=== PATIENT | male | born 1960 | race Caucasian/White ===

== ENCOUNTER → 2020-05-12 15:14 | Outpatient (BNVA) | payer BC, SELFPAY | PROVIDERS: PCP Family Medicine; Visit Provider Internal Medicine Cardiovascular Disease | DX: I25.10 Atherosclerotic heart disease of native coronary artery without angina pectoris (principal); I10 Essential (primary) hypertension | CPT/HCPCS: 93005 ==

== ENCOUNTER → 2021-07-28 14:35 | Outpatient (BNVA) | payer BC, SELFPAY | PROVIDERS: PCP Family Medicine; Referring Provider Family Medicine; Visit Provider Internal Medicine Cardiovascular Disease | DX: I25.10 Atherosclerotic heart disease of native coronary artery without angina pectoris (principal); I10 Essential (primary) hypertension; E11.9 Type 2 diabetes mellitus without complications; Z79.899 Other long term (current) drug therapy | CPT/HCPCS: 93005 ==

== ENCOUNTER → 2022-07-29 14:21 | Outpatient (BNVA) | payer BC, SELFPAY | PROVIDERS: PCP Family Medicine; Referring Provider Family Medicine; Visit Provider Internal Medicine Cardiovascular Disease | DX: I25.10 Atherosclerotic heart disease of native coronary artery without angina pectoris (principal); I10 Essential (primary) hypertension | CPT/HCPCS: 93005 ==

== ENCOUNTER 2022-09-14 08:30 | Outpatient (REF) | payer BC, SELFPAY ==
[2022-09-14 12:51] LABS: Cholesterol 126 mg/dL; HDL Cholesterol 44 mg/dL; LDL Cholesterol Calculated 65 mg/dl; Triglycerides 86 mg/dL
== END 2022-09-14 08:31 | disposition home or self-care (01) ==
LOC: HO.WFDLDS 08:30
PROVIDERS: Visit Provider Internal Medicine Cardiovascular Disease
DX: I25.10 Atherosclerotic heart disease of native coronary artery without angina pectoris (principal); E78.5 Hyperlipidemia, unspecified
CPT/HCPCS: 36415; 80061

== ENCOUNTER 2023-08-09 14:20 | Outpatient (AMB) | payer BC, SELFPAY ==
[2023-08-09 14:26] VITALS: BP 118/78; PULSE 72; BMI 31.1
--- NOTE | 2023-08-09 14:26 | A.OFFVIS_ITS ---
Intake Vital Signs 08/09/23 14:26 Height 5 ft 7 in Weight 198 lb 6.656 oz BMI 31.1 BP 118/78 Blood Pressure Location Lt brachial Position Sitting Pulse 72 Intake Visit Reasons: 1 yr Intake Note: 1 year follow-up with ekg Reed Cleaner Required: No Allergies No Known Allergies Allergy (Verified 05/12/20 15:56) Medication List - Last Reconciled 08/09/23 by Aguila Eller MD allopurinol 300 mg PO DAILY aspirin (Adult Low Dose Aspirin) 162 mg (2 x 81 mg) PO DAILY atorvastatin 80 mg PO DAILY ezetimibe (Zetia) 10 mg PO DAILY 90 days lisinopril 10 mg PO DAILY metoprolol succinate ER 50 mg PO DAILY HPI HPI Comments History of Present Illness Details Enrike comes for follow-up. He has been doing very well. Continues to exercise and walk without any exertional symptoms chest pain shortness of breath. He takes all his medications without any side effects. Schedule for lipid panel in near future. Blood pressure is well optimized. Denies any heart failure symptoms. Denies any prolonged palpitation irregular heartbeat. [facility] Medical History CAD (coronary artery disease) HTN (hypertension) Diabetes mellitus Hyperlipidemia Surgical History Stented coronary artery Hx of cardiac cath Family History Father CVD (cardiovascular disease) Mother No problems noted. Review of Systems Const Denies chills, Denies fatigue, Denies fever(s), Denies frequent falls, Denies weakness, Denies weight gain and Denies weight loss ENT Denies dizziness Card Denies chest pain, Denies leg edema, Denies lightheadedness, Denies palpitations, Denies dyspnea, Denies dyspnea on exertion, Denies orthopnea and Denies other (loss of consciousness) Resp Denies cough, Denies dyspnea and Denies dyspnea on exertion GI Denies hematochezia and Denies change in stool character Musc Denies abnormal gait, Denies muscle weakness, Denies numbness, Denies radiating pain into limb and Denies tingling Neuro Denies abnormal gait, Denies dizziness, Denies frequent falls, Denies numbness, Denies tingling and Denies weakness Endo Denies fatigue and Denies palpitations Physical Exam Vital Signs: Last Vital Signs Pulse 72 08/09/23 14:26 BP 118/78 08/09/23 14:26 BMI result Body Mass Index 31.1 Const General: cooperative, no acute distress, alert and awake Nutritional Appearance: overweight Orientation/consciousness: patient oriented x3 Limitations: no limitations HEENT Head: Yes normocephalic and Yes atraumatic Neck Neck: Yes trachea midline, Yes supple and Yes no JVD Carotids: no bruits Resp Effort & Inspection: normal respiratory effort Auscultation: clear to auscultation bilaterally Cardio Jugular venous distension: no JVD Palpation: normal PMI Rate: regular rate Rhythm: regular rhythm Heart sounds: S1 normal heart sound present and S2 normal heart sound present Skin General skin exam: no rashes or lesions noted Neuro General: patient oriented x3 and no focal motor deficits Extrem General: Yes no clubbing, cyanosis or edema Psych Appearance: grossly normal Affect: Anxious affect present Office Procedures EKG Details: EKG shows normal sinus rhythm with septal QS pattern [id number], Complete Assessment & Plan Assessment & Plan (1) CAD (coronary artery disease): Code(s): I25.10 - Atherosclerotic heart disease of [place] coronary artery without angina pectoris Plan: CAD with drug-eluting stent to LAD for acute coronary syndrome. Since then he has had no recurrent symptoms. Doing well on medical therapy. Given 15 years, will proceed with exercise myocardial perfusion imaging to evaluate for myocardial ischemia and stent patency. This was discussed with him. He understands agrees. Continue aggressive vascular risk factor modification. Co ntinue aspirin therapy for life. Continue aggressive management of blood pressure which is currently well optimized. See below. Diabetes management under you with goal hemoglobin A1c less than 7%. Continue high-intensity statin therapy with ezetimibe therapy. Goal LDL closer to 60 mg/dL. Please forward the copy of his lipid panel to us. (2) HTN (hypertension): Code(s): I10 - Essential (primary) hypertension Plan: Hypertension which is currently well optimized advised to monitor blood pressure at home maintain a log. Goal blood pressure less than 130/84. Low-salt diet was advised. Advised to maintain heart healthy lifestyle. Will follow up in the clinic in 1 year's time, sooner p.r.n.. Thank you for allowing me to partake in his care Orders: Orders CA stress test Today I25.10 - Atherosclerotic heart disease of [place] coronary artery without angina pectoris NM cardiolite stress test 2 Weeks I25.10 - Atherosclerotic heart disease of [place] coronary artery without angina pectoris, R07.9 - Chest pain, unspecified Coding Level of Care Code Est Pt Level 4 (13783) Diagnoses CAD (coronary artery disease) I25.10 HTN (hypertension) I10 CPT Codes EKG - CPT: 05845-[id number], Complete ([id number])
== END 2023-08-09 14:47 | disposition home or self-care (01) ==
PROVIDERS: Visit Provider Internal Medicine Cardiovascular Disease
DX: I25.10 Atherosclerotic heart disease of native coronary artery without angina pectoris (principal); I10 Essential (primary) hypertension
CPT/HCPCS: 93010; 99214

== ENCOUNTER → 2023-08-09 14:20 | Outpatient (BNVA) | payer BC, SELFPAY | PROVIDERS: Visit Provider Internal Medicine Cardiovascular Disease | DX: I25.10 Atherosclerotic heart disease of native coronary artery without angina pectoris (principal); I10 Essential (primary) hypertension; Z79.82 Long term (current) use of aspirin; Z95.5 Presence of coronary angioplasty implant and graft | CPT/HCPCS: 93005 ==

== ENCOUNTER → 2023-09-06 08:03 | Outpatient (REF) | payer BC, SELFPAY ==
--- NOTE | ~2023-09-06 | NM_ITS ---
EXERCISE MYOCARDIAL PERFUSION STUDY INDICATION: Coronary artery disease, assess for ischemia TECHNIQUE: The patient was brought in for an exercise perfusion study on 09/06/2023. Patient performed exercise as per Yemi protocol and was injected 30 mCi of sestamibi once target heart rate was achieved. Images were obtained using the SPECT gamma camera interlaced with the gating device. Images were obtained in supine position. Resting perfusion study was performed on 09/07/2023. Patient was administered 30 mCi of sestamibi intravenously at rest. Images were then obtained in supine position. Images were processed with the software and compared side to side in short axis, horizontal long axis and vertical long axis views. Total DLP 115mGy-cm. FINDINGS: Raw images were reviewed The stress perfusion study showed diminished tracer uptake in mid to distal anterior wall. There is no significant change with CT attenuation correction. The gated study shows diminished LV systolic function with calculated LVEF of 47%. LV cavity is normal in size. The gated study shows mid to distal anterior hypokinesis. Resting study shows diminished tracer uptake in the mid to distal anterior wall, similar to the stress acquisition. No major change with CT attenuation correction. Gating at rest reveals reduced contractility in the mid to distal anterior wall with gated ejection fraction at 43%. The findings are consistent with fixed perfusion defect in the mid to distal anterior wall including adjacent apex. [place] cardiolite stress test IMPRESSION: 1. Myocardial perfusion imaging study shows prior infarct in the mid to distal anterior wall, adjacent apex. 2. Gated LVEF is 47% during stress and 43% during rest. 3. Transient ischemic dilatation not present. EKG component of the test reported separately.
--- NOTE | 2023-09-06 08:05 | CA_ITS ---
Acquisition Time: 2023-09-06 08:20:48 Total Exercise Time: 00:07:00 Test Indications: CAD Medications: SEE H Protocol: ARCHIE Max HR: 141 BPM 90% of Pred: 156 BPM Max BP: 164/068 mmHG Max Work Load: 8.5 METS Exercise stress test with exercise 7 min achieving 90% MPHR, without anginal symptoms, with isolated PVCs and ventricular bigeminy (asymptomatic), with normotensive response to exercise , with slight downslop in leads 2, V4-V6 not meeting crtieria for ischemia. Nuclear images pending. Test reviewed with Dr. Eller Referred By: Aguila Eller Overread By: Hailee Burns
== END ==
LOC: HO.CARD 08:03
PROVIDERS: PCP Family Medicine; Visit Provider Internal Medicine Cardiovascular Disease
DX: R07.9 Chest pain, unspecified (principal); I25.10 Atherosclerotic heart disease of native coronary artery without angina pectoris
CPT/HCPCS: 78452; 93017; A9500

== ENCOUNTER → 2023-09-06 08:05 | Outpatient (BNV) | payer BC, SELFPAY | PROVIDERS: PCP Family Medicine; Visit Provider Nurse Practitioner | DX: I49.3 Ventricular premature depolarization (principal) | CPT/HCPCS: 78452; 93016; 93018 ==

== ENCOUNTER → 2023-10-04 09:56 | Outpatient (REF) | payer BC, SELFPAY ==
--- NOTE | 2023-10-04 09:58 | CA_ITS ---
Transthoracic Echocardiogram Patient (Last, First, Middle): Enrike Costa L Gender: Male Date of : 1960 Age: 63 Procedure Date: 10/04/2023 Procedure Type: Transthoracic Echocardiogram Location: OP Height: 167.64 cm Weight: 84.82 kg BSA: 1.94 m2 Heart Rate: bpm BP: 130 / 80 mmHg Communications Maintainer: TO Referring MD: Aguila Eller MD Symptoms: I25.10 - Atherosclerotic heart disease of [place] coronary artery without... Study Quality: Fair/Contrast ECG Rhythm: Sinus Conclusions: - The left ventricular systolic function is low normal. The calculated ejection fraction is 52% by biplane method. - The apical inferior, mid inferior, apical septum, and mid anteroseptal segments are hypokinetic. - No obvious valvular pathology seen on this study. Findings Procedure Information Contrast agent, definity, is being given per protocol without apparent complications. Left Ventricle Normal left ventricular cavity size. The left ventricular systolic function is low normal. The calculated ejection fraction is 52% by biplane method. There is evidence of regional wall motion abnormalities. Evidence suggests grade I (mild) diastolic dysfunction. There is mild septal asymmetric hypertrophy. Wall Motion Rest Echo Findings The apical inferior, mid inferior, apical septum, and mid anteroseptal segments are hypokinetic. Right Ventricle Normal right ventricular cavity size and systolic function. Atria The left atrium is mildly dilated. The right atrium is normal in size. Aortic Valve There is a normal trileaflet aortic valve. There is no aortic valve stenosis. There is no aortic valve regurgitation. Mitral Valve The mitral valve appears normal. There is trace mitral valve regurgitation. There is no mitral valve stenosis. Pulmonic Valve The pulmonic valve is likely normal. Tricuspid Valve There is no tricuspid valve regurgitation. Tricuspid regurgitation envelope is inadequate for calculation of right ventricular systolic pressure. Great Vessels The asc aorta is normal in size. Venous The inferior vena cava is normal in size and collapses greater than 50% with inspiration. Pericardium/Pleural There is no evidence of pericardial effusion. Prior Study Comparison No significant change compared to prior study dated: 05/23/2018. (images reviewed) Recommendations, Care & Conclusions No obvious valvular pathology seen on this study. Measurements 2D Linear Measurements IVSd: 1.10 0.6-0.9/0.6-1.0 cm LVIDd: 5.04 3.9-5.3/4.2-5.9 cm LVIDd Index: 2.60 2.4-3.2/2.2-3.1 cm/m2 LVIDs: 3.26 2.0-3.6 cm LVPWd: 0.88 0.7-1.1 cm LA Diam: 4.30 2.7-3.8/3.0-4.0 cm LAIDs Index: 2.22 1.5-2.3 cm/m2 LV Mass: 226.18 67-162/88-224 g LV Mass Index: 116.59 43-95/49-115 g/m2 LVOT Diam: 2.30 3.0+(-)1.3 cm 2D Systolic Function EF 4C: 53.00 >55% EF 2C: 50.80 >55% EF BiP: 52.10 >55% Mitral Valve MV Pk E: 0.65 MV PK A: 0.69 MV Decel Time: 218.00 E/A: 0.90 E'Lateral: 6.64 E'Medial: 4.90 E/E' Med: 13.20 E/E' Lat: 9.70 PHT: 64.00 MVA PHT: 3.44 Decel [place]: 2.96 Aortic Valve AoV Pk Ishmael: 1.50 AoV Mn Ishmael: 0.91 AoV VTI: 0.28 AoV Pk Grad: 9.00 Aov Mn Grad: 4.00 MALENA Cont.VTI: 3.74 LVOT LVOT Pk Ishmael: 1.19 LVOT Mn Ishmael: 0.80 LVOT VTI: 0.25 LVOT Pk Grad: 6.00 LVOT Mn Grad: 3.00 LVOT Diam: 2.30 LVOT Area: 4.15 Diastolic Function MV Pk E: 0.65 MV Pk A: 0.69 E/A: 0.90 E'Medial: 4.90 E/E' Med: 13.20 E' Laterial: 6.64 E/E' Lat: 9.70 Right Ventricle TAPSE (mm): 27.40 TVS' Ishmael: 14.40 Tricuspid Valve RA Press: 3.00 Great Vessels Aorta Sinus of Valsalva: 3.87 2.0-3.5 cm Ao Asc: 3.60 2.1-3.4 cm Updated in Other Vendor System with Status of Final Qamar Spence MD electronically signed on 10/05/2023 1:09:50 PM with status of Final
== END ==
LOC: HO.CARD 09:56
PROVIDERS: PCP Family Medicine; Visit Provider Internal Medicine Cardiovascular Disease
DX: I25.10 Atherosclerotic heart disease of native coronary artery without angina pectoris (principal); I10 Essential (primary) hypertension
CPT/HCPCS: 93306; Q9957

== ENCOUNTER → 2023-10-04 09:58 | Outpatient (BNV) | payer BC, SELFPAY | PROVIDERS: PCP Family Medicine; Visit Provider Internal Medicine | DX: I25.10 Atherosclerotic heart disease of native coronary artery without angina pectoris (principal); I51.89 Other ill-defined heart diseases | CPT/HCPCS: 93306 ==

== ENCOUNTER 2024-08-14 14:15 | Outpatient (AMB) | payer MEDICARE, BC, SELFPAY ==
--- NOTE | 2024-08-14 14:31 | MHC.OFFVIS ---
Vital Signs 08/14/24 14:33 Height 5 ft 7 in Weight 194 lb 14.218 oz BMI 30.5 BP 120/62 Blood Pressure Location Lt brachial Position Sitting Pulse 60 Pulse Source Monitor Intake Visit Reasons: 1 yr f/up Intake Note: 1 yr f/up Tax Manager Cpa Required: No Accompanied by: Self / Same As Patient Allergies No Known Allergies Allergy (Verified 05/12/20 15:56) Medication List - Last Reconciled 08/14/24 by Aguila Eller MD allopurinol 300 mg PO DAILY aspirin (Adult Low Dose Aspirin) 162 mg (2 x 81 mg) PO DAILY atorvastatin 80 mg PO DAILY ezetimibe 10 mg PO DAILY lisinopril 20 mg PO DAILY metoprolol succinate ER 50 mg PO DAILY HPI Comments Details: Enrike comes for follow-up. He has been doing very well from cardiac perspective. Denies any new exertional chest pain or shortness of breath. His hemoglobin A1c remains on 6.5%. Last LDL is 60 mg/dL. Taking all his medications. Denies any heart failure symptoms. No prolonged palpitation irregular heartbeat. No lightheadedness, syncope. His lisinopril was recently increased to 20 mg per daily and since then he said his blood pressures been well controlled. [facility] Medical History CAD (coronary artery disease) HTN (hypertension) Diabetes mellitus Hyperlipidemia Surgical History Stented coronary artery Hx of cardiac cath Family History Father CVD (cardiovascular disease) Mother No problems noted. Review of Systems Const Denies chills, Denies fatigue, Denies fever(s), Denies frequent falls, Denies weakness, Denies weight gain and Denies weight loss ENT Denies dizziness Card Denies chest pain, Denies leg edema, Denies lightheadedness, Denies palpitations, Denies dyspnea and Denies dyspnea on exertion Resp Denies cough, Denies dyspnea and Denies dyspnea on exertion GI Denies hematochezia Musc Denies abnormal gait, Denies muscle weakness, Denies numbness, Denies radiating pain into limb and Denies tingling Neuro Denies abnormal gait, Denies dizziness, Denies frequent falls, Denies numbness, Denies tingling and Denies weakness Endo Denies fatigue and Denies palpitations Physical Exam Vital Signs: Last Vital Signs Pulse 60 08/14/24 14:33 BP 120/62 08/14/24 14:33 BMI result Body Mass Index 30.5 Const General: cooperative, no acute distress, alert and awake Nutritional Appearance: overweight Orientation/consciousness: patient oriented x3 Limitations: no limitations HEENT Head: Yes normocephalic and Yes atraumatic Neck Neck: Yes trachea midline, Yes supple and Yes no JVD Carotids: no bruits Resp Effort & Inspection: normal respiratory effort Auscultation: clear to auscultation bilaterally Cardio Jugular venous distension: no JVD Palpation: normal PMI Rate: regular rate Rhythm: regular rhythm Heart sounds: S1 normal heart sound present and S2 normal heart sound present Skin General skin exam: no rashes or lesions noted Neuro General: patient oriented x3 and no focal motor deficits Extrem General: Yes no clubbing, cyanosis or edema Psych Appearance: grossly normal Affect: Anxious affect present Office Procedures EKG Details: EKG shows normal sinus rhythm poor R-wave progression consistent with anteroseptal ID with nonspecific ST T wave changes, unchanged from before [id number], Complete Assessment & Plan Assessment & Plan (1) CAD (coronary artery disease): Code(s): I25.10 - Atherosclerotic heart disease of [place] coronary artery without angina pectoris Category: Medical Plan: Stable coronary artery disease with remote stenting to the LAD for acute coronary syndrome with residual infarcts segment in mid to distal LAD segment noted on myocardial perfusion imaging as well as echocardiogram. Low preserved LV ejection fraction. Continue aggressive medical therapy. Continue low-dose aspirin therapy. Continue high-intensity statin therapy with ezetimibe therapy with well optimized LDL. Continue neurohormonal modulation with metoprolol lisinopril therapy and aggressive blood pressure control. Encouraged to maintain activity level as tolerated. Advised to call me with any new exertional symptoms. (2) HTN (hypertension): Code(s): I10 - Essential (primary) hypertension Category: Medical Plan: Hypertension which is currently well optimized with increase medications of lisinopril. Advised to monitor blood pressure at home maintain a log. Goal blood pressure less than 130/84. Low-salt diet was discussed. Maintain activity level as tolerated. Importance of compliance with medication was discussed. Understands and agrees. Follow up in the clinic in 1 year's time, sooner p.r.n.. Thank you for allowing me to partake in his care Coding Level of Care Code Est Pt Level 4 (86426) Complex EM visit Add On G2211 Diagnoses CAD (coronary artery disease) I25.10 HTN (hypertension) I10 CPT Codes EKG - CPT: 32693-[id number], Complete ([id number])
[2024-08-14 14:33] VITALS: BP 120/62; PULSE 60; BMI 30.5
--- OUTSIDE RECORDS SUMMARY | 2024-08-14 17:05 | XMS_ITS | Data Portability ---
Author Organization [facility], , [facility] Address [address] [place] [address] Care Team Providers Care Mud Car Worker Name Role Phone DIANE CONNELL Primary Care Provide r FRANCES LIM Director Facilities Maintenance KIM DEGROOT Wildlife Officer [facility] Spiral Gear Generator BOYD FELIPE Winch Operator [phone] Assessment No assessment recorded. Plan of Treatment Reminders Order Date Submit Date Provider Last Modified By Organization Details Last Modified Time Details Appointments LAB Follow-Up 2024 08:05A M [facility] Lab Not available Not available Not available Medical Managemen t 15 2024 09:15A M Diane Reardon MD Not available Not available Not available Lab lipid panel, serum 2023 024 [facility], [address] [place] [address], [id number], 02/29/2024 14:01:18 BMP, serum or plasma 2023 024 [facility], [address] [place] [address], [id number], 02/29/2024 14:01:17 uric acid, serum or plasma 2022 023 [facility], [address] [place] [address], [id number], 02/21/2023 14:26:32 lipid panel, serum 2022 023 [facility], [address] [place] [address], [id number], 02/21/2023 14:26:31 HbA1c (hemoglob in A1c), blood 2022 023 [facility], [address] [place] [address], [id number], 02/21/2023 11:10:23 BMP, serum or plasma 2022 023 [facility], [address] [place], [address], 02/21/2023 14:26:30 Referral orthopedi c surgeon referral - L knee pain, worsening , 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 Surgeries None recorded. Imaging None recorded. Medication Orders None recorded. Patient TargetsNo targets recorded. Patient Instructions Encounter Date Encounter Id Patient Instructions Last Modified By Organization Details Last Modified Time 02/25/2022 [id number] high cholesterol lifestyle changes melina Not available 02/25/2022 09:14:02 Well Visit 50 to 65: Care Instructions melina Not available 02/25/2022 09:14:02 Prostate Cancer Screening using PSA was discussed. The U.S. Preventive Services Task Force advises not to make a PSA test a part of the standard exam for men ages 55-69. Instead they recommend the uncertainties about the test be discussed and ordered only if a patient still wants it. Over their lifetimes as many as 50% or more of men will develop prostate cancer but only 2% of men will of prostate cancer. For men who chose to be screened for prostate cancer if 1000 men are screened with a psa test over a 15 year period there might be 1-2 deaths prevented however 235 men will have a biopsy with risk of infection, bleeding and Pain, 100 men will have their prostate removed by surgery or radiation treatments and 60-70 of those will suffer incontinence or impotence. There is also the risk of anesthesia or radiation complications. For men over 70 prostate cancer screening offered no benefit and risked pain, worry, expense and possibly shorter life expectancy. After a discussion of treatment and medication options, which included consideration of the best practices in medicine, a medical plan was provided. The patient's opinions and concerns were included in this treatment plan and goal. * Maintain 1200 mg of calcium from food sources daily, * Take vitamin D 7089-1841 units daily to help absorption of calcium into your bones * Use sunblock consistently * Review the website: [employer] to get more information on the Mediterranean diet - a heart healthy eating plan * Immunizations up to date; COVID vaccines; booster for bivalent declined for now; will get it the pharmacy. * The current guidelines from the [place] [employer] is moderate aerobic physical activity about 30 minutes for 5 days of the week. Walking at a moderately fast pace, as tolerated. Try to build muscle mass. This will help maintain bone strength and support your joints. * Colonoscopy is due 2022. Normal in year * Pt has a hx of precancerous polypsand needs repeat col onoscopy every 5 years. Colonoscopy due 2018. * Health care proxy discussed and no changes. * Wellness Visit in 1 year * See your dentist at least twice a year. * Vision checks every year is recommended because you have diabetes. * Discussed labs - Nov 2021 HTN - at goal of less than 130/80 per AHA guidelines. Please continue meds and salt reduction. f/u in 6 mos with labs prior. DM2 - discussed labs, A1c at goal of less than 7%; continue lifestyle and low carb diet. Lipids - discussed labs, your LDL (bad type of cholesterol) is at goal. Continue your cholesterol lowering medications. Review the website: [employer] for more information on the Mediterranean diet. Continue to try a plant-based diet, try to do moderate physical activity for 30 minutes 5 days a week. * uric acid in range, continue allopurinol melina Not available 02/25/2022 09:14:45 08/30/2022 [id number] high cholesterol lifestyle changes melina Not available 08/30/2022 09:58:25 reducing risk of another heart attack with medicine: care instructions melina Not available 08/30/2022 09:58:25 reducing risk of another heart attack with medicine: care instructions melina Not available 08/30/2022 09:58:25 After a discussion of treatment and medication options, which included consideration of the best practices in medicine, a medical plan was provided. The patient's opinions and concerns were included in this treatment plan and goal. HTN - at goal of less than 130/80 per AHA guidelines. Please continue meds and salt reduction. DM2 - discussed labs, A1c at goal of less than 7%; continue meds Lipids - discussed labs, your LDL (bad type of cholesterol) is at goal. Continue your cholesterol lowering medications. Review the website: [employer] for more information on the Mediterranean diet. Modify your diet and sodium/salt requirement is less than 1500 mg per day. Continue to try a plant-based diet, try to do moderate physical activity for 30 minutes 5 days a week. no gout attacks continue allopurinol we will send lab results to Dr Lim, CAD stable, asymptomatic. melina Not available 08/30/2022 20:38:18 03/07/2023 [id number] Well Visit 50 to 65: Care Instructions melina Not available 03/09/2023 05:06:41 Prostate Cancer Screening was discussed. The U.S. Preventive Services Task Force advises not to make a PSA test a part of the standard exam for men ages 55-69. Instead they recommend the uncertainties about the test be discussed and ordered only if a patient still wants it. Over their lifetimes as many as 50% or more of men will develop prostate cancer but only 2% of men will of prostate cancer. For men who chose to be screened for prostate cancer if 1000 men are screened with a psa test over a 15 year period there might be 1-2 deaths prevented however 235 men will have a biopsy with risk of infection, bleeding and Pain, 100 men will have their prostate removed by surgery or radiation treatments and 60-70 of those will suffer incontinence or impotence. There is also the risk of anesthesia or radiation complications. For men over 70 prostate cancer screening offered no benefit and risked pain, worry, expense and possibly shorter life expectancy. After a discussion of treatment and medication options, which included consideration of the best practices in medicine, a medical plan was provided. The patient's opinions and concerns were included in this treatment plan and goal. * Maintain 1200 mg of calcium from food sources daily, * Take vitamin D 0178-1205 units daily to help absorption of calcium into your bones * Use sunblock consistently * Review the website: [employer] to get more information on the Mediterranean diet - a heart healthy eating plan * Immunizations up to date; COVID vaccine booster recommended. * The current guidelines from the [place] [employer] is moderate aerobic physical activity about 30 minutes for 5 days of the week. Walking at a moderately fast pace, as tolerated. Try to build muscle mass. This will help maintain bone strength and support your joints. * Colonoscopy is due 2022 - precancerous polyps noted in 2107 - scheduled May 06, 2023. * Health care proxy discussed and no changes. * Wellness Visit in 1 year * See your dentist at least twice a year. * Vision checks every year is recommended because you have diabetes. * Discussed labs - we will send to Dr Lim as requested by pt * CAD - stable, cardio once a year * gout - no flare ups, stable on allopurinol HTN - at goal of less than 130/80 per AHA guidelines. Please continue meds and salt reduction. Will send BP readings via portal, will take BP 2 to 3 hours after taking medications in the AM DM2 - discussed labs, A1c at goal of less than 7%; continue diet modification See your eye doctor every year to monitor for diabetic retinopathy. Lipids - discussed labs, your LDL (bad type of cholesterol) is at goal. Continue your cholesterol lowering medications. Review the website: [employer] for more information on the Mediterranean diet. Modify your diet and sodium/salt requirement is less than 1500 mg per day. Continue to try a plant-based diet, try to do moderate physical activity for 30 minutes 5 days a week. melina Not available 03/09/2023 05:09:56 09/02/2023 [id number] have a great time in [facility]! melina Not available 09/02/2023 09:53:47 Reason for Referral Orthopedic Surgeon Referral for Pain of left knee joint L knee pain, worsening , retired mail machine operator Referring Physician: Diane Reardon, Family Medicine, Encounter Date: 03/06/2024 Results Created Date Observation Date Name Description Value Unit Range Abnormal Flag Note LastModifiedBy Organization Detail LastModifiedTime 08/24/1908/23/2022 HGB A1C hemoglobin A1C 6.5 % 4.8-6. 0 high Goal: <7% in Patie nts with Diabe birgit An A1c betwe en 5.7-6 .4% is ident ified as pre-d iabet es and sugge sts risk for progr essio n to diabe birgit Two a1c value s of 6.5% or highe r is consi stent with a diagn osis of diabe birgit but may need furth er confi rmati on Not Available [address], [address], 08/23/2022 10:45:15 08/24/1908/23/2022 HGB A1C estimated average glucose 139.9 mg/dL Not Available [address], [address], 08/23/2022 10:45:15 08/24/19 23 08/23/2022 BASIC METAB OLIC PANEL glucose 117 mg/dL 70-100 high Not Available [address], [address], 08/23/2022 15:02:29 08/24/1908/23/2022 BASIC METAB OLIC PANEL BUN 13 mg/dL 7-18 Not Available [address], [address], 08/23/2022 15:02:29 08/24/1908/23/2022 BASIC METAB OLIC PANEL creatinine 0.7 mg/dL 0.8-1. 3 low Not Available [address], [address], 08/23/2022 15:02:29 08/24/19 23 08/23/2022 BASIC METAB OLIC PANEL B/C 18.6 ratio Not Available [address], [address], 08/23/2022 15:02:29 08/24/19 23 08/23/2022 BASIC METAB OLIC PANEL GFR >=60ML /MIN mL/mi n normal >=60m L/min - Nyla l or midly reduc ed <60mL /min- Decre ased kidne y funct ion <15mL /min - Kidne y failu re [facility] calcu lates estim ated Glome rular Filtr ation Rate (eGFR ) using the Chron ic Kidne y Disea se Epide miolo gy Colla borat ion (CKD- EPI) Equat ion (Ro r et. al 2020) as recom omid d by the Natio nal Kidne y Found ation . eGFR is based on age, serum creat inine , and sex. CKD-E PI does not calcu late eGFR by race, does not apply to child diya (age <18 years ), and shoul d not be used in pregn brandi. Not Available [address], [address], 08/23/2022 15:02:29 08/24/1908/23/2022 BASIC METAB OLIC PANEL sodium 142 mmol/ L 136-14 5 Not Available [address], [address], 08/23/2022 15:02:29 08/24/1908/23/2022 BASIC METAB OLIC PANEL potassium 4.5 mmol/ L 3.5-5. 1 Not Available [address], [address], 08/23/2022 15:02:29 08/24/19 23 08/23/2022 BASIC METAB OLIC PANEL chloride 104 mmol/ L 96-107 Not Available [address], [address], 08/23/2022 15:02:29 08/24/1908/23/2022 BASIC METAB OLIC PANEL anion gap 9.1 5.0-15 .0 Not Available [address], [address], 08/23/2022 15:02:29 08/24/1908/23/2022 BASIC METAB OLIC PANEL CO2 29 mmol/ L 21-32 Not Available [address], [address], 08/23/2022 15:02:29 08/24/19 23 08/23/2022 BASIC METAB OLIC PANEL calcium 9.2 mg/dL 8.5-10 .3 Not Available [address], [address], 08/23/2022 15:02:29 02/22/20 23 02/21/2023 HGB A1C hemoglobin A1C 6.5 % 4.8-6. 0 high Goal: <7% in Patie nts with Diabe birgit An A1c betwe en 5.7-6 .4% is ident ified as pre-d iabet es and sugge sts risk for progr essio n to diabe birgit Two a1c value s of 6.5% or highe r is consi stent with a diagn osis of diabe birgit but may need furth er confi rmati on Not Available [address], [address], 02/21/2023 11:10:23 02/22/20 23 02/21/2023 HGB A1C estimated average glucose 139.9 mg/dL Not Available [address], [address], 02/21/2023 11:10:23 02/22/20 23 02/21/2023 BASIC METAB OLIC PANEL glucose 114 mg/dL 70-100 high Not Available [address], [address], 02/21/2023 14:26:30 02/22/20 23 02/21/2023 BASIC METAB OLIC PANEL BUN 15 mg/dL 7-18 Not Available [address], [address], 02/21/2023 14:26:30 02/22/20 23 02/21/2023 BASIC METAB OLIC PANEL creatinine 0.7 mg/dL 0.8-1. 3 low Not Available [address], [address], 02/21/2023 14:26:30 02/22/20 23 02/21/2023 BASIC METAB OLIC PANEL B/C 21.4 ratio Not Available [address], [address], 02/21/2023 14:26:30 02/22/20 23 02/21/2023 BASIC METAB OLIC PANEL GFR >=60ML /MIN mL/mi n normal >=60m L/min - Nyla l or midly reduc ed <60mL /min- Decre ased kidne y funct ion <15mL /min - Kidne y failu re [facility] calcu lates estim ated Glome rular Filtr ation Rate (eGFR ) using the Chron ic Kidne y Disea se Epide miolo gy Colla borat ion (CKD- EPI) Equat ion (Ro duncan et. al 2020) as recom omid d by the Natio nal Kidne y Found ation . eGFR is based on age, serum creat inine , and sex. CKD-E PI does not calcu late eGFR by race, does not apply to child diya (age <18 years ), and shoul d not be used in pregn brandi. Not Available [address], [address], 02/21/2023 14:26:30 02/22/20 23 02/21/2023 BASIC METAB OLIC PANEL sodium 143 mmol/ L 136-14 5 Not Available [address], [address], 02/21/2023 14:26:30 02/22/20 23 02/21/2023 BASIC METAB OLIC PANEL potassium 4.3 mmol/ L 3.5-5. 1 Not Available [address], [address], 02/21/2023 14:26:30 02/22/20 23 02/21/2023 BASIC METAB OLIC PANEL chloride 105 mmol/ L 96-107 Not Available [address], [address], 02/21/2023 14:26:30 02/22/20 23 02/21/2023 BASIC METAB OLIC PANEL anion gap 13.0 5.0-15 .0 Not Available [address], [address], 02/21/2023 14:26:30 02/22/20 23 02/21/2023 BASIC METAB OLIC PANEL CO2 25 mmol/ L 21-32 Not Available [address], [address], 02/21/2023 14:26:30 02/22/20 23 02/21/2023 BASIC METAB OLIC PANEL calcium 8.8 mg/dL 8.5-10 .3 Not Available [address], [address], 02/21/2023 14:26:30 02/22/20 23 02/21/2023 LIPID PANEL cholesterol 135 mg/dL <200 mg/dl Mahendra able 200-2 39 mg/dl Borde rline High >240 mg/dl High Not Available [address], [address], 02/21/2023 14:26:31 02/22/20 23 02/21/2023 LIPID PANEL triglyceride s 55 mg/dL <150 mg/dL Nyla l 150-1 99 mg/dL Borde rline High 200-4 99 mg/dL High >500 mg/dL Very High Not Available [address], [address], 02/21/2023 14:26:31 02/22/20 23 02/21/2023 LIPID PANEL direct HDL 63 mg/dL <40 mg/dl - Major Risk for CHD >60 mg/dl - Negat david Risk for CHD Not Available [address], [address], 02/21/2023 14:26:31 10/3002/21/2023 URIC ACID uric acid 4.5 mg/dL 3.5-7. 2 Not Available [address], [address], 02/21/2023 14:26:32 02/22/2002/21/2023 LDL - CALCU LATED LDL - calculated 61.0 RISK CATEG ORY LDL GOAL _ CHD or CHD Risk Equiv alent s <100 mg/dl (10-y ear risk >20%) 2+ Risk Facto rs <130 mg/dl (10-y ear risk <= 20%) 0-1 Risk Facto r? <160 mg/dl ? Almos t all peopl e with 0-1 risk facto r have a 10 year risk <10%, thus 10 year risk asses ment in peopl e with 0-1 risk facto r is not gene kasia. Not Available [address], [address], 02/21/2023 14:26:33 02/22/2002/21/2023 MICRO ALBUM IN/CR EATIN INE RATIO PANEL , URINE microalbumin 19.2 mg/L 1.3-20 .0 Not Available [address], [address], 02/21/2023 14:46:01 02/22/20 23 02/21/2023 MICRO ALBUM IN/CR EATIN INE RATIO PANEL , URINE creatinine urine 114.4 mg/dL 30.0-1 25.0 Not Available [address], [address], 02/21/2023 14:46:01 02/22/20 23 02/21/2023 MICRO ALBUM IN/CR EATIN INE RATIO PANEL , URINE microalb/cre at ratio 16.8 mg/g_ creat 0.0-29 .0 Not Available [address] [place], [address], 02/21/2023 14:46:01 08/26/19 24 08/26/2023 BASIC METAB OLIC PANEL glucose 113 mg/dL 70-100 high Not Available [address], [address], 08/26/2023 10:38:37 08/26/19 24 08/26/2023 BASIC METAB OLIC PANEL BUN 10 mg/dL 7-18 Not Available [address], [address], 08/26/2023 10:38:37 08/26/1908/26/2023 BASIC METAB OLIC PANEL creatinine 0.7 mg/dL 0.8-1. 3 low Not Available [address], [address], 08/26/2023 10:38:37 08/26/19 24 08/26/2023 BASIC METAB OLIC PANEL B/C 14.3 ratio Not Available [address], [address], 08/26/2023 10:38:37 08/26/1908/26/2023 BASIC METAB OLIC PANEL GFR >=60ML /MIN mL/mi n normal >=60m L/min - Nyla l or midly reduc ed <60mL /min- Decre ased kidne y funct ion <15mL /min - Kidne y failu re [facility] calcu lates estim ated Glome rular Filtr ation Rate (eGFR ) using the Chron ic Kidne y Disea se Epide miolo gy Colla borat ion (CKD- EPI) Equat ion (Ro r et. al 2020) as recom omid d by the Natio nal Kidne y Found ation . eGFR is based on age, serum creat inine , and sex. CKD-E PI does not calcu late eGFR by race, does not apply to child diya (age <18 years ), and shoul d not be used in pregn brandi. Not Available [address], [address], 08/26/2023 10:38:37 08/26/19 24 08/26/2023 BASIC METAB OLIC PANEL sodium 142 mmol/ L 136-14 5 Not Available [address], [address], 08/26/2023 10:38:37 08/26/19 24 08/26/2023 BASIC METAB OLIC PANEL potassium 4.4 mmol/ L 3.5-5. 1 Not Available [address], [address], 08/26/2023 10:38:37 08/26/19 24 08/26/2023 BASIC METAB OLIC PANEL chloride 104 mmol/ L 96-107 Not Available [address], [address], 08/26/2023 10:38:37 08/26/19 24 08/26/2023 BASIC METAB OLIC PANEL anion gap 9.9 5.0-15 .0 Not Available [address], [address], 08/26/2023 10:38:37 08/26/19 24 08/26/2023 BASIC METAB OLIC PANEL CO2 28 mmol/ L 21-32 Not Available [address], [address], 08/26/2023 10:38:37 08/26/19 24 08/26/2023 BASIC METAB OLIC PANEL calcium 9.2 mg/dL 8.5-10 .3 Not Available [address], [address], 08/26/2023 10:38:37 08/26/19 24 08/26/2023 URIC ACID uric acid 4.2 mg/dL 3.5-7. 2 Not Available [address], [address], 08/26/2023 10:38:39 08/26/19 24 08/26/2023 HGB A1C hemoglobin A1C 6.5 % 4.8-6. 0 high Goal: <7% in Patie nts with Diabe birgit An A1c betwe en 5.7-6 .4% is ident ified as pre-d iabet es and sugge sts risk for progr essio n to diabe birgit Two a1c value s of 6.5% or highe r is consi stent with a diagn osis of diabe birgit but may need furth er confi rmati on Not Available [address], [address], 08/26/2023 11:54:35 08/26/19 24 08/26/2023 HGB A1C estimated average glucose 139.9 mg/dL Not Available [address], [address], 08/26/2023 11:54:35 02/29/20 24 02/29/2024 MICRO ALBUM IN/CR EATIN INE RATIO PANEL , URINE microalbumin 31.1 mg/L 1.3-20 .0 high Not Available [address], [address], 02/29/2024 10:49:40 02/29/20 24 02/29/2024 MICRO ALBUM IN/CR EATIN INE RATIO PANEL , URINE creatinine urine 108.4 mg/dL 30.0-1 25.0 Not Available [address], [address], 02/29/2024 10:49:40 02/29/20 24 02/29/2024 MICRO ALBUM IN/CR EATIN INE RATIO PANEL , URINE microalb/cre at ratio 28.7 mg/g_ creat 0.0-29 .0 Not Available [address], [address], 02/29/2024 10:49:40 02/29/20 24 02/29/2024 HGB A1C hemoglobin A1C 6.5 % 4.8-6. 0 high Goal: <7% in Patie nts with Diabe birgit An A1c betwe en 5.7-6 .4% is ident ified as pre-d iabet es and sugge sts risk for progr essio n to diabe birgit Two a1c value s of 6.5% or highe r is consi stent with a diagn osis of diabe birgit but may need furth er confi rmati on Not Available [address], [address], 02/29/2024 13:53:33 02/29/20 24 02/29/2024 HGB A1C estimated average glucose 139.9 mg/dL Not Available [address], [address], 02/29/2024 13:53:33 02/29/20 24 02/29/2024 BASIC METAB OLIC PANEL glucose 116 mg/dL 70-100 high Not Available [address], [address], 02/29/2024 14:01:17 02/29/20 24 02/29/2024 BASIC METAB OLIC PANEL BUN 15 mg/dL 7-18 Not Available [address], [address], 02/29/2024 14:01:17 02/29/20 24 02/29/2024 BASIC METAB OLIC PANEL creatinine 0.8 mg/dL 0.8-1. 3 Not Available [address], [address], 02/29/2024 14:01:17 02/29/20 24 02/29/2024 BASIC METAB OLIC PANEL B/C 18.8 ratio Not Available [address], [address], 02/29/2024 14:01:17 02/29/20 24 02/29/2024 BASIC METAB OLIC PANEL GFR >=60ML /MIN mL/mi n normal >=60m L/min - Nyla l or midly reduc ed <60mL /min- Decre ased kidne y funct ion <15mL /min - Kidne y failu re [facility] calcu lates estim ated Glome rular Filtr ation Rate (eGFR ) using the Chron ic Kidne y Disea se Epide miolo gy Colla borat ion (CKD- EPI) Equat ion (Ro r et. al 2020) as recom omid d by the Natio nal Kidne y Found ation . eGFR is based on age, serum creat inine , and sex. CKD-E PI does not calcu late eGFR by race, does not apply to child diya (age <18 years ), and shoul d not be used in pregn brandi. Not Available [address], [address], 02/29/2024 14:01:17 02/29/20 24 02/29/2024 BASIC METAB OLIC PANEL sodium 142 mmol/ L 136-14 5 Not Available [address], [address], 02/29/2024 14:01:17 02/29/20 24 02/29/2024 BASIC METAB OLIC PANEL potassium 4.6 mmol/ L 3.5-5. 1 Not Available [address], [address], 02/29/2024 14:01:17 02/29/20 24 02/29/2024 BASIC METAB OLIC PANEL chloride 104 mmol/ L 96-107 Not Available [address], [address], 02/29/2024 14:01:17 02/29/20 24 02/29/2024 BASIC METAB OLIC PANEL anion gap 10.1 5.0-15 .0 Not Available [address], [address], 02/29/2024 14:01:17 02/29/20 24 02/29/2024 BASIC METAB OLIC PANEL CO2 28 mmol/ L 21-32 Not Available [address], [address], 02/29/2024 14:01:17 02/29/20 24 02/29/2024 BASIC METAB OLIC PANEL calcium 9.4 mg/dL 8.5-10 .3 Not Available [address], [address], 02/29/2024 14:01:17 02/29/20 24 02/29/2024 LIPID PANEL cholesterol 146 mg/dL <200 mg/dl Mahendra able 200-2 39 mg/dl Borde rline High >240 mg/dl High Not Available [address], [address], 02/29/2024 14:01:18 02/29/20 24 02/29/2024 LIPID PANEL triglyceride s 80 mg/dL <150 mg/dL Nyla l 150-1 99 mg/dL Borde rline High 200-4 99 mg/dL High >500 mg/dL Very High Not Available [address], [address], 02/29/2024 14:01:18 02/29/20 24 02/29/2024 LIPID PANEL direct HDL 70 mg/dL <40 mg/dl - Major Risk for CHD >60 mg/dl - Negat david Risk for CHD Not Available [address], [address], 02/29/2024 14:01:18 02/29/20 24 02/29/2024 URIC ACID uric acid 4.9 mg/dL 3.5-7. 2 Not Available [address], [address], 02/29/2024 14:01:18 02/29/20 24 02/29/2024 LDL - CALCU LATED LDL - calculated 60 RISK CATEG ORY LDL GOAL _ CHD or CHD Risk Equiv alent s <100 mg/dl (10-y ear risk >20%) 2+ Risk Facto rs <130 mg/dl (10-y ear risk <= 20%) 0-1 Risk Facto r? <160 mg/dl ? Almos t all peopl e with 0-1 risk facto r have a 10 year risk <10%, thus 10 year risk asses ment in peopl e with 0-1 risk facto r is not neckarthik kasia. Not Available [address], [address], 02/29/2024 14:01:20 09/07/19 24 09/06/2023 NM, myoca rdial perfu mahamed scan, w/ stres s No observ ation record ed. [address], [address], 09/14/2023 11:13:44 Result Notes None recorded. 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 Procedures Surgical History Date Name Laterality Status Provider Name and Address Organization Details Recorded Time 1 prevention-card iovascular risk reduction counseling completed Tressa Danielle [facility] 12/05/2020 09:50:23 1 prevention-supriya al alcohol misuse screening completed Tressa Danielle [facility] 12/05/2020 09:50:23 0 prevention-card iovascular risk reduction counseling completed Elaine [facility] [place] 11/29/2019 14:29:02 0 prevention-supriya al alcohol misuse screening completed Elaine [facility] [place] 11/29/2019 14:29:02 8 Colonoscopy completed Diane Reardon MD [address] [place] [address], [phone], [facility] 02/21/2018 04:48:12 3 Colonoscopy completed Diane Reardon MD [address] [place] [address], [phone], [facility] 10/15/2012 19:49:08 Imaging Results Imaging Date Name Status LastModified by Organization Details LastModified Time 09/06/2023 NM, myocardial perfusion scan, w/ stress completed [email or web address], [address], 09/14/2023 11:13:44 Procedure Notes None recorded. Medical Equipment None Reported. Allergies No known drug allergies Medications Name Sig Start Date Stop Date Status Note LastModified by Organization Details LastModified Time amoxicill in 500 mg capsule 06/17 completed Pt finished course 06/17/20 NMT Not Available Not Available Not Available metformin 500 mg tablet Take 1 tablet twice a day by oral route for 30 days. 2011 active pt. is not taking this med for at least one year, per Dr Armstrong, see note 11/2011 Not Available Not Available Not Available atorvasta tin 80 mg tablet TAKE 1 TABLET BY MOUTH EVERY DAY active Not Available Not Available No t Available metoprolo l succinate ER 50 mg tablet,ex tended release 24 hr TAKE 1 TABLET BY MOUTH EVERY DAY active Not Available Not Available No t Available lisinopri l 20 mg tablet TAKE 1 TABLET EVERY DAY BY ORAL ROUTE FOR 90 DAYS, FOR HYPERTEN MAHAMED. active Not Available Not Available No t Available allopurin ol 100 mg tablet Take 3 tablets every day by oral route. 11/10 completed 300 mg out of stock Not Available Not Available Not Available lisinopri l 10 mg tablet TAKE 1 TABLET BY MOUTH EVERY DAY 07/02 completed Not Available Not Available Not Available diclofena c sodium 75 mg tablet,de layed release Take 1 tablet twice a day by oral route for 14 days. 06/17 completed Pt finished course 06/17/20 NMT Not Available Not Available Not Available allopurin ol 300 mg tablet TAKE 1 TABLET BY MOUTH EVERY DAY active Not Available Not Available No t Available lisinopri l 5 mg tablet Take 1 tablet every day by oral route for 30 days. 12/08 completed Not Available Not Available Not Available metoprolo l succinate ER 25 mg tablet,ex tended release 24 hr active Not Available Not Available Not Available Aspir-81 mg tablet,de layed release Take 2 tablets every day by oral route. active Not Available Not Available No t Available lisinopri l 2.5 mg tablet active Not Available Not Available Not Available ezetimibe 10 mg tablet TAKE 1 TABLET (10 MG) ORALLY DAILY active Not Available Not Available No t Available Crestor 40 mg tablet TAKE ONE TABLET EVERY DAY BY ORAL ROUTE active switched to atorvast atin Not Available Not Available Not Available Fish Oil active Not Available Not Avai lable Not Available Vitamin D3 active Not Available Not Available Not Available multivita min active Not Available Not Available Not Available GaviLyte- G 236 gram-22.7 4 gram-6.74 gram-5.86 gram oral solution 05/08 completed Not Available Not Available Not Available Osteo Bi-Flex active Not Available Not Available Not Available Vitals Date Recorded Body height Body mass index (BMI) Body weight Heart rate Systolic blood pressure Diastolic blood pressure Provider Name and Address Organization Details Last Updated DateTime 2 167.64 cm 30.6 kg/m2 38560.0 6 g 64 /min 124 mm[Hg] 76 mm[Hg] Tressa Danielle [facility] 2 08:39:01 Date Recorded Body height Body mass index (BMI) Body weight Heart rate Systolic blood pressure Diastolic blood pressure Provider Name and Address Organization Details Last Updated DateTime 3 167.64 cm 31.7 kg/m2 41288.2 g 64 /min 124 mm[Hg] 74 mm[Hg] Tressa HardyEARL max [facility] 3 09:37:46 Date Recorded Body height Body mass index (BMI) Body weight Heart rate Systolic blood pressure Diastolic blood pressure Systolic blood pressure Diastolic blood pressure Provider Name and Address Organization Details Last Updated DateTime 3 167.64 cm 32 kg/m2 19050.2 9 g 60 /min 140 mm[Hg] 80 mm[Hg] 142 mm[Hg] 74 mm[Hg] Tressa Danielle E[facility] 3 15:04:22 Date Recorded Systolic blood pressure Diastolic blood pressure Provider Name and Address Organization Details Last Updated DateTime 03/07/2023 130 mm[Hg] 72 mm[Hg] Diane Reardon MD [address] [place] [address], [phone] 03/07/2023 15:33:08 Date Recorded Body height Body mass index (BMI) Body weight Heart rate Systolic blood pressure Diastolic blood pressure Provider Name and Address Organization Details Last Updated DateTime 4 167.64 cm 31.2 kg/m2 62623.3 3 g 68 /min 110 mm[Hg] 72 mm[Hg] Tressa HardybennettpuraEARL [facility] 4 09:35:55 Date Recorded Body height Body mass index (BMI) Body weight Heart rate Systolic blood pressure Diastolic blood pressure Systolic blood pressure Diastolic blood pressure Provider Name and Address Organization Details Last Updated DateTime 4 167.64 cm 32.6 kg/m2 02627.6 6 g 68 /min 148 mm[Hg] 62 mm[Hg] 132 mm[Hg] 80 mm[Hg] Tressa Danielle MA [facility] 09:44:02 Date Recorded Systolic blood pressure Diastolic blood pressure Provider Name and Address Organization Details Last Updated DateTime 07/28/2022 130 mm[Hg] 80 mm[Hg] Zehra Silverman RN [facility] 07/30/2022 09:20:29 Date Recorded Systolic blood pressure Diastolic blood pressure Provider Name and Address Organization Details Last Updated DateTime 06/12/2024 132 mm[Hg] 65 mm[Hg] Tressa Danielle [facility] 06/12/2024 09:21:45 Date Recorded Systolic blood pressure Diastolic blood pressure Provider Name and Address Organization Details Last Updated DateTime 07/02/2024 122 mm[Hg] 75 mm[Hg] Nicole [facility] [place] 07/02/2024 14:51:34 Date Recorded Systolic blood pressure Diastolic blood pressure Provider Name and Address Organization Details Last Updated DateTime 08/14/2024 120 mm[Hg] 62 mm[Hg] Patricia Olivares RN [facility] 08/14/2024 16:57:43 Social History Question Answer Notes LastModified by Organizat ion Details LastModified Time Tobacco Smoking Status Former Smoker quit 1981 Diane Reardon MD [address] [place] [address], [phone], [facility] 05/31/2011 14:27:42 Do You Have An Advance Directive? Yes Forms Given 4 Information not available 09/19/2012 What Is Your Level Of Alcohol Consumption? Moderate 2 Drinks A Day Information not available 09/19/2012 Do You Wear A Helmet When Biking? Yes Information not available 10/03/2014 What Is Your Level Of Caffeine Consumption? Moderate 1 Cup Daily Information not available 10/03/2014 What Type Of Diet Are You Following? CARDIAC Information not available 10/03/2014 Which Illicit Or Recreational Drugs Have You Used? None Information no t available 10/06/2015 What Is Your Occupation? [employer] Information no t available 05/31/2011 When Did You Quit Smoking? 16+yearssin celastcigar ette Information not available 10/07/2016 How Many Days In The Past Year Have You Had A Heavy Drinking Consumption (4+ Female, 5+ Male)? 8 Information no t available 09/19/2012 Are There Any Guns Present In Your Home? No Information not available 10/03/2014 Live Alone Or With Others? With Others [email or web address] Information no t available 05/31/2011 Patient Has Health Care Proxy Signed And In Chart Yes Marcia eliseoillo Information not available 11/07/2017 Marital Status Marcia - 27 Yrs. M. [email or web address] Information not available 05/31/2011 Mosquito Repellent Used Routinely Yes Information not available 10/03/2014 What Was The Date Of Your Most Recent Tobacco Screening? 03/06/2024 Information not available 03/06/2024 How Many Children Do You Have? 2 21, 19 Information no t available 05/31/2011 What Is Your Current Pack Years? 10packyears 1 Pack Yr Information not available 09/02/2023 Seat Belts Used Routinely Yes Information not available 10/03/2014 Are You Sexually Active? Yes Information not available 10/03/2014 Smoke Alarm In Home Yes Information not available 10/03/2014 At What Age Did You Start Smoking Tobacco? 14 15-22 (1982)yrs Old Information not available 09/02/2023 How Much Tobacco Do You Smoke? 1 PPW Information not available 09/02/2023 What Types Of Sporting Activities Do You Participate In? Walking Information not available 10/03/2014 General Stress Level Low Information not available 10/03/2014 Do You Use Sunscreen Routinely? Yes Information not available 10/03/2014 How Many Years Have You Smoked Tobacco? 7 Information not available 09/02/2023 Do You Or Have You Ever Used Any Other Forms Of Tobacco Or Nicotine? No Information not available 02/25/2022 Sex: Unknown Functional Status None recorded. Mental Status None recorded. Family History Relationship Description Onset Age of this Age Resolved Age Notes LastModified by Organization Details LastModified Time Mother Problem smoker s 81; age 87 now [email or web address] illo Not available 12/08/2020 10:30:14 Mother Chronic obstructive pulmonary disease 87 [email or web address] illo Not available 12/08/2020 10:30:25 Father Myocardial infarction 42 42 klopezdelcast illo Not available 10/06/2015 15:21:22 Notes:siblings x 3 healthy Medical History Condition Response Coronary Artery Disease Y Diabetes Type II Y Gout Y Hyperlipidemia Y Hypertension Y CARDIOVASCULAR Y Immunizations Vaccine Type Date Status Note Provider Nam darlene and Address Organization Details Recorded Time Tdap 3 completed Not Available [facility] 05/12/2019 02:16:06 pneumococcal polysaccharide PPV23 3 completed Not Available [facility] 05/12/2019 02:14:35 Influenza, split virus, quadrivalent, PF 4 completed Not Available [facility] 05/12/2019 02:34:58 Influenza, split virus, quadrivalent, PF 8 completed Not Available [facility] 05/12/2019 02:22:28 Influenza, split virus, quadrivalent, PF 0 completed Diane Reardon MD [address] [place] [address], [phone], [facility] 05/11/2019 14:58:02 Influenza, split virus, quadrivalent, PF 0 completed Jodi Cobb LPN [facility] 03/14/2020 13:28:47 Influenza, split virus, quadrivalent, PF 2 completed Diane Reardon MD [address] [place] [address], [phone], [facility] 02/25/2022 08:55:23 Td (adult), 2 Lf tetanus toxoid, preservative free, adsorbed 3 completed EARL Patel, [facility] 08/30/2022 10:09:31 Influenza, split virus, quadrivalent, PF 3 completed Diane Reardon MD [address] [place] [address], [phone], [facility] 03/09/2023 05:07:28 COVID-19, mRNA, LNP-S, PF, 30 mcg/0.3 mL dose 1 [facility]02/[facility]23 09:33:27 COVID-19, mRNA, LNP-S, PF, 30 mcg/0.3 mL dose 1 [facility] 09/02/2023 09:33:27 Influenza, split virus, trivalent, PF 4 completed Diane Reardon MD [address] [place] [address], [phone] 03/07/2024 10:48:34 zoster recombinant 2 completed [facility]/02/2023 09:33:27 zoster recombinant 2 completed Not Available [facility] 11/07/2021 08:22:32 zoster recombinant 2 completed [facility]avarez [facility] 11/05/2021 16:50:29 COVID-19, mRNA, LNP-S, PF, 30 mcg/0.3 mL dose 1 completed [facility] 09/02/2023 09:33:27 COVID-19, mRNA, LNP-S, PF, 30 mcg/0.3 mL dose 1 completed Tressa Hardybennettpura [facility] 09/02/2023 09:33:27 COVID-19, mRNA, LNP-S, PF, 30 mcg/0.3 mL dose, fang-sucrose 2 completed [facility] 09/02/2023 09:33:27 Influenza, split virus, trivalent, preservative 4 completed [facility] 09/02/2023 09:33:27 Influenza, split virus, trivalent, preservative 6 completed [facility] 09/02/2023 09:33:27 Past Encounters Encounter ID Performer Location Encounter Start Date Encounter Closed Date Diagnosis/Indication Diagnosis SNOMED-CT Code Diagnosis ICD10 Code Diagnosis Note [id number] [facility] [address] [place] [address] 05/25/2007 11:52:59 05/25/2007 13:15:59 [id number] [facility], OFFICE [address] [place] [address] [place] [address] 05/31/2011 13:47:01 05/31/2011 14:39:10 [id number] [facility], OFFICE [address] [facility] [place] [facility] [address] 06/15/2011 08:14:40 06/15/2011 08:46:26 [id number] [facility], OFFICE [address] [facility] [place] [facility] [address] 07/16/2011 08:14:35 07/16/2011 08:42:09 [id number] [facility], OFFICE [address] [place] [address] [place] [facility] [address] 09/23/2011 08:12:45 09/23/2011 08:47:38 [id number] Arline Bee [facility], OFFICE [address] [place] [address] [place] [facility] [address] 03/23/2012 08:11:31 03/23/2012 08:47:50 [id number] Natacha Scales [facility], OFFICE [address] [place] [address] [place] [facility] [address] 09/19/2012 14:49:56 09/19/2012 16:05:28 [id number] MD CHINTAN Hall [facility], OFFICE [address] [place] [address] [place] [address] 12/19/2012 14:35:05 12/19/2012 15:27:53 Type 2 diabetes mellitus without complication 634512914 Coronary arteriosclerosis in [place] 6985195852 [id number] MD CHINTAN Hall [facility], OFFICE [address] [place] [address] [place] [address] 06/14/2013 14:43:41 06/14/2013 15:48:15 Coronary atherosclerosis 065124713 Type 2 mariely betes mellitus without complication 223624880 Influenza vaccine needed 4957566137 106 Mixed hyperlipidemia 926315258 continue to work on diet and exercise as discussed [id number] , [facility], OFFICE [address] [place] [address] 10/02/2013 09:31:55 10/02/2013 10:37:11 Adult health examination 072371541 see Risk Assessment and Lifestyle Change Counseling section above Counseling 890814069 Mixed hyperlipidemia 596429118 continue to work on diet and exercise as discussed Coronary atherosclerosis 181394344 Type 2 mariely betes mellitus without complication 390283986 Patient po st percutaneous transluminal coronary angioplasty 122644931 x 1 Gout 37753530 [id number] Diane Reardon MD , [facility], OFFICE [address] [place] [address] 04/02/2014 14:39:02 04/02/2014 15:27:30 Benign essential hypertension 4284430 continue to work on diet, exercise, and lowering salt intake as discussed Blood pressure at goal Mixed hyperlipidemia 863717240 continue to work on diet and exercise as discussed Coronary atherosclerosis 241473912 [id number] Diane Reardon MD , [facility], OFFICE [address] [place] [address] 10/03/2014 13:54:33 10/04/2014 10:53:15 Benign essential hypertension 1781730 continue to work on diet, exercise, and lowering salt intake as discussed Mixed hyperlipidemia 290007516 continue to work on diet and exercise as discussed Type 2 mariely betes mellitus without complication 479765630 Adult [facility] th examination 721625752 see Risk Assessment and Lifestyle Change Counseling section above Gout [id number] Coronary arteriosclerosis in [place] 7393924786 [address] percutaneous transluminal coronary angioplasty 865081699 x 1 [id number] Ivelisse Ngo , [facility], OFFICE [address] [place] [address] 04/03/2015 13:44:42 04/03/2015 14:09:50 Screening for disorder 019109178 Z11.59 Mixed hyperlipidemia 267 884133 E78.2 continue to work on diet and exercise as discussed Type 2 mariely betes mellitus without complication 394328474 E11.9 Essential hypertension 45650348 I10 [id number] Diane Reardon MD , [facility], OFFICE [address] [place] [address] 10/06/2015 14:57:39 10/06/2015 15:44:24 Adult health examination 441314872 Z00.00 see Risk Assessment and Lifestyle Change Counseling section above Counseling 303982921 Z71 .9 Coronary arteriosclerosis in [place] 2965963185 107 I25.10 Mixed hyperlipidemia 267 621523 E78.2 Type 2 mariely betes mellitus without complication 272391249 E11.9 Essential hypertension 02311298 I10 Gout 38705757 M10.9 [id number] Diane Reardon MD , [facility], OFFICE [address] [place] [address] 04/05/2016 14:37:02 04/05/2016 15:21:05 Benign essential hypertension 3281891 I10 Mixed hyperlipidemia 267 136812 E78.2 Type 2 mariely betes mellitus without complication 228402900 E11.9 [id number] Diane Reardon MD , [facility], OFFICE [address] [place] [address] 10/07/2016 14:50:06 10/07/2016 15:34:59 Adult health examination 223323846 Z00.00 see Risk Assessment and Lifestyle Change Counseling section above Counseling 466395592 Z71 .9 Mixed hyperlipidemia 267 472911 E78.2 Type 2 mariely betes mellitus without complication 977710891 E11.9 Essential hypertension 26758686 I10 Gout 55487069 M10.[address] percutaneous transluminal coronary angioplasty 776805589 Z98.61 x 1 [id number] Diane Reardon MD , [facility], OFFICE [address] [place] [address] 05/02/2017 10:39:16 05/02/2017 11:09:48 Benign essential hypertension 4155417 I10 Mixed hyperlipidemia 267 372261 E78.2 continue to work on diet and exercise as discussed Active or passive immunization 478731839 Z23 Type 2 mariely betes mellitus without complication 363398047 E11.9 Coronary atherosclerosis 221803468 I25.10 [id number] MD CHINTAN Hall, [facility], OFFICE [address] [place] [address] 11/07/2017 14:51:20 11/07/2017 15:49:27 Adult health examination 782141719 Z00.00 see Risk Assessment and Lifestyle Change Counseling section above Counseling 956996980 Z71 .9 Depression screening 171 604727 Z13.89 depression screening tool administer ed, entered into emr, scored and discussed, time greater than 7.5 minutes Screening for malignant neoplasm of colon 855180573 Z12.11 Referral for a DIRECT booked colonoscop y. This patient is a healthy ASA Class 1 or 2 patient (only mild systemic disease), or a STABLE, well controlled insulin dependent diabetic. They do not have serious cardiac disease ie MS/angiopl asty within 1 year, symptomati c CHF; renal failure with CKD 4 or 5; take Coumadin, Plavix, Aggrenox, etc. Coronary arteriosclerosis in [place] 3573174328 107 I25.10 Mixed hyperlipidemia 267 528037 E78.2 continue to work on diet and exercise as discussed Type 2 mariely betes mellitus without complication 947565634 E11.9 Coronary atherosclerosis 641384774 I25.10 Essential hypertension 11121887 I10 Gout 67052822 M10.[address] percutaneous transluminal coronary angioplasty 767326193 Z98.61 x 1 [id number] Diane Reardon MD , [facility], OFFICE [address] [place] [address] 05/08/2018 14:29:34 05/08/2018 15:20:12 Benign essential hypertension 8569663 I10 continue to work on diet, exercise, and lowering salt intake as discussed Mixed hyperlipidemia 267 412894 E78.2 continue to work on diet and exercise as discussed Type 2 mariely betes mellitus without complication 653801215 E11.9 Coronary arteriosclerosis in [place] 2648665066 107 I25.10 Gout 38877357 M10.9 [id number] Diane Reardon MD , [facility], OFFICE [address] [place] [address] 11/10/2018 13:59:39 11/10/2018 14:49:52 Adult health examination 365906053 Z00.00 see Risk Assessment and Lifestyle Change Counseling section above Counseling 483421431 Z71 .9 Depression screening 171 916524 Z13.89 depression screening tool administer ed, entered into emr, scored and discussed, time greater than 7.5 minutes Coronary arteriosclerosis in [place] 2476083050 107 I25.10 Mixed hyperlipidemia 267 532881 E78.2 continue to work on diet and exercise as discussed Type 2 mariely betes mellitus without complication 572394326 E11.9 Essential hypertension 27548803 I10 Loss of hair 807106732 L 65.9 Gout 08278746 M10.9 Coronary atherosclerosis 360756185 I25.[address] percutaneous transluminal coronary angioplasty 794204139 Z98.61 x 1 [id number] Diane Reardon MD , [facility], OFFICE [address] [place] [address] 05/11/2019 14:32:15 05/11/2019 15:08:36 Mixed hyperlipidemia 609304031 E78.2 continue to work on diet and exercise as discussed Active or passive immunization 669071426 Z23 Pain in right foot 09703 02475 15464 M79.671 Type 2 mariely betes mellitus without complication 724488759 E11.9 Essential hypertension 03966714 I10 Coronary arteriosclerosis in [place] 0096000352 107 I25.10 [id number] Jl Mcdaniel DPM Podiatry, [facility] [address] [place] [address] 06/12/2019 15:05:19 06/12/2019 15:42:50 Type 2 diabetes mellitus without complication 766995463 E11.9 Plantar fasciitis 419899 003 M72.2 [id number] Diane Reardon MD , [facility], OFFICE [address] [place] [address] 11/29/2019 14:57:41 12/05/2019 12:02:48 Adult health examination 900780707 Z00.00 see Risk Assessment and Lifestyle Change Counseling section above Counseling 125528036 Z71 .9 including cardivascu lar risk reduction counseling Depression screening 171 089969 Z13.89 depression screening tool administer ed, entered into emr, scored and discussed, time greater than 7.5 minutes Screening for alcohol abuse 616202718 Z13.39 Essential hypertension 02840913 I10 Mixed hyperlipidemia 267 457068 E78.2 Active or passive immunization 326757828 Z23 Coronary arteriosclerosis in [place] 1681345568 107 I25.10 Coronary atherosclerosis 180966834 I25.10 Gout 16943344 M10.9 Type 2 mariely betes mellitus without complication 817150115 E11.9 [id number] Diane Reardon MD , [facility], OFFICE [address] [place] [address] 01/17/2020 15:01:14 01/21/2020 15:13:01 Pain in right knee 6177531396 01751 M25.935 [id number] Jodi Cobb LPN , [facility], OFFICE [address] [place] [address] 03/13/2020 08:23:59 03/14/2020 11:39:26 Active or passive immunization 122340788 Z23 [id number] Diane Reardon MD , [facility], OFFICE [address] [place] [address] 06/17/2020 08:50:54 06/18/2020 08:41:14 Essential hypertension 01416701 I10 Mixed hyperlipidemia 267 739453 E78.2 Coronary atherosclerosis 873005770 I25.10 Gout 60030769 M10.9 Type 2 mariely betes mellitus without complication 363468393 E11.9 [id number] Diane Reardon MD , [facility], OFFICE [address] [place] [address] 12/08/2020 09:38:46 12/08/2020 10:40:24 Adult health examination 588724823 Z00.00 see Risk Assessment and Lifestyle Change Counseling section above Counseling 325069096 Z71 .9 including cardivascu lar risk reduction counseling Depression screening 171 738495 Z13.31 depression screening tool administer ed, entered into emr, scored and discussed, time greater than 7.5 minutes Screening for alcohol abuse 567822697 Z13.39 Mixed hyperlipidemia 267 337873 E78.2 Essential hypertension 17950918 I10 Type 2 mariely betes mellitus without complication 704699172 E11.9 Gout 10182798 M10.9 Coronary atherosclerosis 799469239 I25.[address] percutaneous transluminal coronary angioplasty 040827534 Z98.61 x 1 [id number] Diane Reardon MD FP, [facility], OFFICE [address] [place] [phone] 06/01/2021 08:58:46 06/01/2021 09:49:38 Essential hypertension 00553418 I10 Mixed hyperlipidemia 267 662002 E78.2 Microalbum inuric diabetic nephropathy 056371323 E11.21 [id number] Diane Reardon MD , [facility], OFFICE [address] [place] [address] 02/25/2022 08:29:57 02/25/2022 09:12:25 Adult health examination 426139328 Z00.00 see Risk Assessment and Lifestyle Change Counseling section above Counseling 218252163 Z71 .9 including cardivascu lar risk reduction counseling Depression screening 171 716945 Z13.31 depression screening tool administer ed, entered into emr, scored and discussed, time greater than 7.5 minutes Screening for alcohol abuse 696604703 Z13.39 Essential hypertension 55686051 I10 Mixed hyperlipidemia 267 826720 E78.2 Coronary atherosclerosis 834333984 I25.10 Active or passive immunization 232783494 Z23 Patient po [address] percutaneous transluminal coronary angioplasty 636282980 Z98.61 x 1 Type 2 mariely betes mellitus without complication 050957170 E11.9 [id number] Diane Reardon MD , [facility], OFFICE [address] [place] [address] 08/30/2022 09:30:33 08/30/2022 09:58:21 Essential hypertension 57070290 I10 Mixed hyperlipidemia 267 522705 E78.2 Angina pectoris 34713342 0 I20.9 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 1896866 I25.2 Gout 51113303 M10.9 Type 2 mariely betes mellitus without complication 586396776 E11.9 Active or passive immunization 391058818 Z23 [id number] Diane Reardon MD , [facility], OFFICE [address] [place] [address] 03/07/2023 14:46:49 03/07/2023 15:45:14 Adult health examination 514814615 Z00.00 see Risk Assessment and Lifestyle Change Counseling section above Depression screening 171 919205 Z13.31 depression screening tool administer ed Screening for alcohol abuse 167562592 Z13.39 Alcohol use screening tool administer ed Screening for malignant neoplasm of prostate 933055431 Z12.5 PSA testing for ages 55-69 risks and benefits discussed {{patient declines testing te st ordered}}. Active or passive immunization 238449115 Z23 Microalbum inuric diabetic nephropathy 346284753 E11.21 Coronary atherosclerosis 877770026 I25.10 Essential hypertension 58676786 I10 Gout 82539196 M10.9 Mixed hyperlipidemia [address] percutaneous transluminal coronary angioplasty 510786887 Z98.61 x 1 Type 2 mariely betes mellitus without complication 032102867 E11.9 [id number] Diane Reardon MD , [facility], OFFICE [address] [facility] [place] [address] 09/02/2023 09:19:53 09/02/2023 09:54:43 Benign essential hypertension 5638790 I10 You have chronic hypertensi on that is controlled .Your blood pressure is at goal <130/80.Co ntinue current medication (s).Follow up for blood pressure check in 6 months with labs.Pleas e limit your intake of salt to 1500 mg daily, dairy products, processed foods, alcohol, and caffeine. Read labels. Increase vegetables and fruits (high fiber).Ple ase try to participat e in 30 minutes of activity daily.Plea se try to maintain a healthy weight.Charity ck your blood pressure at least 1-2 times each month at [facility] the same time of day with 10-15 minutes of quiet rest prior to taking blood pressure. Make sure that your feet are flat on the floor and back upright resting on chair. Empty your bladder before taking your blood pressure.P christina update us if your home blood pressures are not at goal. Call with any concerns or questions. We will send labs to Dr Lim. Gout 67591298 M10.9 uric acid less than 6.5, in rangeconti nue allopurino l daily Mixed hyperlipidemia 267 602364 E78.2 * Discussed cholestero l. Your HDL (good type) and triglyceri yousuf are at goal.* Your LDL (bad type of cholestero l) is at goal from Jan 2023.* Continue your cholestero l lowering medication daily.* Saturated fat is a bad kind of fat. For a heart healthy diet, 16 grams of saturated fat per day for women and 20 grams of saturated fat per day for men.*The [place] [employer] n (AHA) recommends 30 minutes of moderate physical activity 5 days a week. Type 2 mariely betes mellitus without complication 159430588 E11.9 DM2 - discussed labs, A1c at goal of less than 7%; well managed with lifestyle and diet.* See your eye doctor every year to monitor for diabetic retinopath y. [id number] Diane Reardon MD , [facility], OFFICE [address] [place] [address] 03/06/2024 09:04:45 03/06/2024 11:52:27 Active or passive immunization 690122645 Z23 Essential hypertension 81306496 I10 HTN - NOT at goal of less than 130/80 per AHA guidelines .Will send readings via portal but if not at goal - will increase lisinopril to 20 mg daily. Discussed labs. send all labs to Dr Lim Continue low salt diet of less than 1500 mg of sodium per day. The [place] [employer] (AHA) recommends 30 minutes of moderate physical activity 5 days a week. A Mediterran christopher type of diet and a plant based diet is recommende d, review the website: [employer]. [employer]. The DASH diet is also recommende d. * Review this website: https://rupal prideWhoseView.ie/al l-about-go od-and-charity ap for healthy inexpensiv e meals. Type 2 mariely betes mellitus without complication 083335722 E11.9 DM2 - discussed labs, A1c at goal of less than 7%; well managed with lifestyle and diet.* See your eye doctor every year to monitor for diabetic retinopath y. Mixed hyperlipidemia 267 328255 E78.2 * Discussed cholestero l. Your HDL (good type) and triglyceri yousuf are at goal.* Your LDL (bad type of cholestero l) is at goal from Jan 2023.* Continue your cholestero l lowering medication daily.* Saturated fat is a bad kind of fat. For a heart healthy diet, 16 grams of saturated fat per day for women and 20 grams of saturated fat per day for men.*The [place] [employer] n (AHA) recommends 30 minutes of moderate physical activity 5 days a week. Pain of le ft knee joint [id number] 36976 M25.562 pt will make an appt, activity as tolerated, recumbent bike, swimmingle t us know when your appt is Health Concerns Section Related Observation LastModified by Organization Detai ls LastModified Time None Recorded Concern Status LastModified by Organization Details LastModified Time None Recorded Advance Directives Directive Y: forms given 09/01/2013 Payers Encounter Date Sequence Insurance Name Policy Number Policy Zaragoza Covered Member ID Zaragoza Member ID Guarantor Name 02/25/2022 1 [place] [employer] 113 Enrike Noble Fasoli [id number] Enrike Faspantera 08/30/2022 1 [place] 113 Enrike L Fasoli [id number] Enrike Fasoli 03/07/2023 1 [place] 113 Enrike L Fasoli [id number] Enrike Costa 09/02/2023 1 [place] 113 Enrike L Fasoli [id number] Enrike Fasoli 03/06/2024 1 [place] 113 Enrike Noble Fasoli [id number] Enrike Costa Notes Date Note Type Note Provider Name and Address Organization Details Recorded Time 2 text/html Risk Assessment and Lifestyle Change Counseling 50-64Reported bypatient.Coronary Artery Disease Risk Assessment:Family History of Coronary Artery Disease(father MS at 42);Personal history of diabetes;Personal history coronary artery disease; Patient has high risk for coronary artery disease; Soper 10 year risk 11-15% Breast Cancer Risk Assessment:No family history of breast cancer; No history of breast cancer or dcis; Patient has average risk for breast cancer Colon Cancer Risk Assessment:No family history of colon polyps or cancer;History of adenomatous colon polyp(due 2022); Patient has higher than average risk for colon cancer Lung Cancer Risk Assessment:Has used cigarettes more than 30 pack-years;Former smoker quit more than 15 years ago; No asbestos exposure; Patient has average risk for lung cancer Fracture Risk Assessment:No unexplained fracture; Patient has low risk for osteoporotic bone fractures Cognitive/Behavioral Risk Assessment:No personal history of mental illness; No family history of mental illness Safety Risk Assessment:No evidence of abuse/neglect; Do you feel safe in your current relationship?YES; Have you ever been a victim of physicial/emotional/sexual abuse?NO; Concerns for alcohol or drug abuse?NO Diet:Counseled about appropriate portion size; Counseled about appropriate calcium intake and good dietary sources of calcium.; Discussed the value of a Mediterranean diet , and eating more fruits and vegetables Exercise counseling:Discussed the importance of daily physical activity; Discussed the importance of weight bearing exercise Safety:Counseled about protecting skin from the sun and lowering the risk of skin cancerVMG DiabetesReported bypatient.Duration:chronic Control:usually well controlled; unchanged since last visit; treated with diet only; Hemoglobin A1C has been less than 7; Hemoglobin A1C goal is less than 6.5; BP usually runs less than 120/80; BP goal is lessthan 130/80 Compliance:Patient understands medications are to reduce blood sugar and control diabetes; compliant with follow-up visits; compliant with diet; Compliant with exercise; Taking YORDY or ARB; Taking a statin medications Barriers to CareNo identified barriers to care Self Care:not monitoring home glucose Context:checking feet regularly; taking aspirin daily; not missing doses of medications; no side effects from medications Associated Symptoms:no dizziness; no headaches; no confusion; no blurred vision; no numbness of feet; no calluses on feet Ability to Manage Self CareOn how confident the patient feels in ability to self manage condition the patient selects 8 with 10 being very confident and 1 being very low confidenceVMG HyperlipidemiaReported bypatient.Duration:chronic Control:well controlled; improved since last visit; LDL has been <80, goal is <80; treated with diet; treated with medications; Patient understands medications are to lower cholesterol Compliance:compliant with medications; compliant with follow-up visits; compliant with diet; Barriers to CareNo identified barriers to care Context:Ischemic heart disease;Diabetes Associated Symptoms:no muscle pain; no fatigue; no chest discomfort; no dyspnea; no change in exercise capacity Ability to Manage Self CareOn how confident the patient feels in ability to self manage condition the patient selects 8 with 10 being very confident and 1 being very low confidenceVMG HypertensionReported bypatient.Duration:Age / year diagnosed (chronic) Context:No kidney disease; No congestive heart failure; No history of transient ischemic attacks; No peripheral vascular disease;Ischemic heart disease;Diabetes Control:BP Goal less than (130/80); Treated with diet and exercise; Treated with medications; Patient understands medications are to lower blood pressure Compliance:Compliant with medications; Compliant with diet; Compliant with exercise; Compliant with follow-up visits Barriers to CareNo identified barriers to care Self Care:not doing home bp monitoring Aggravating factors:counseled to increase activity; counseled to lose weight Associated Symptoms:No chest pain; No shortness of breath; No edema; No fatigue; No palpitations; No decline in exercise capacity Ability to Manage Self CareOn how confident the patient feels in ability to self manage condition the patient selects 8 with 10 being very confident and 1 being very low confidence Diane Reardon MD [address] [place] [address], [phone] 02/25/2022 09:14:50 3 text/html VMG DiabetesReported bypatient.Duration:chronic Control:usually well controlled; unchanged since last visit; treated with diet only; Hemoglobin A1C has been less than 7; Hemoglobin A1C goal is less than 6.5; BP usually runs less than 120/80; BP goal is lessthan 130/80 Compliance:Patient understands medications are to reduce blood sugar and control diabetes; compliant with follow-up visits; compliant with diet; Compliant with exercise; Taking YORDY or ARB; Taking a statin medications Barriers to CareNo identified barriers to care Self Care:not monitoring home glucose Context:checking feet regularly; taking aspirin daily; not missing doses of medications; no side effects from medications Associated Symptoms:no dizziness; no headaches; no confusion; no blurred vision; no numbness of feet; no calluses on feet Ability to Manage Self CareOn how confident the patient feels in ability to self manage condition the patient selects 8 with 10 being very confident and 1 being very low confidenceVMG HyperlipidemiaReported bypatient.Duration:chronic Control:well controlled; improved since last visit; LDL has been <80, goal is <80; treated with diet; treated with medications; Patient understands medications are to lower cholesterol Compliance:compliant with medications; compliant with follow-up visits; compliant with diet; Barriers to CareNo identified barriers to care Context:Ischemic heart disease;Diabetes Associated Symptoms:no muscle pain; no fatigue; no chest discomfort; no dyspnea; no change in exercise capacity Ability to Manage Self CareOn how confident the patient feels in ability to self manage condition the patient selects 8 with 10 being very confident and 1 being very low confidenceVMG HypertensionReported bypatient.Duration:Age / year diagnosed (chronic) Context:No kidney disease; No congestive heart failure; No history of transient ischemic attacks; No peripheral vascular disease;Ischemic heart disease;Diabetes Control:BP Goal less than (130/80); Treated with diet and exercise; Treated with medications; Patient understands medications are to lower blood pressure Compliance:Compliant with medications; Compliant with diet; Compliant with exercise; Compliant with follow-up visits Barriers to CareNo identified barriers to care Self Care:not doing home bp monitoring Aggravating factors:counseled to increase activity; counseled to lose weight Associated Symptoms:No chest pain; No shortness of breath; No edema; No fatigue; No palpitations; No decline in exercise capacity Ability to Manage Self CareOn how confident the patient feels in ability to self manage condition the patient selects 8 with 10 being very confident and 1 being very low confidence weight gain and aware - 20 lbs since [place] in 18 daysno concerns since last visit - except for weight and he got a treadmillsaw Dr Lim this July and EKG normal Rachelearmwalt Reardon MD [address] [place] [address], [phone] 08/30/2022 20:38:23 3 text/html Risk Assessment and Lifestyle Change Counseling 50-64Reported bypatient.Coronary Artery Disease Risk Assessment:Family History of Coronary Artery Disease(father MS at 42);Personal history of diabetes;Personal history coronary artery disease; Patient has high risk for coronary artery disease; Soper 10 year risk 11-15% Breast Cancer Risk Assessment:No family history of breast cancer; No history of breast cancer or dcis; Patient has average risk for breast cancer Colon Cancer Risk Assessment:No family history of colon polyps or cancer;History of adenomatous colon polyp(due 2022, ); Patient has higher than average risk for colon cancer Lung Cancer Risk Assessment:Has used cigarettes less than 30 pack years;Former smoker quit more than 15 years ago; No asbestos exposure; Patient has average risk for lung cancer; quit in 1981 Fracture Risk Assessment:No unexplained fracture; Patient has average risk for osteoporotic bone fractures Cognitive/Behavioral Risk Assessment:No personal history of mental illness; No family history of mental illness Safety Risk Assessment:No evidence of abuse/neglect; Do you feel safe in your current relationship?YES; Have you ever been a victim of physicial/emotional/sexual abuse?NO; Concerns for alcohol or drug abuse?NO Diet:Counseled about appropriate portion size; Counseled about appropriate calcium intake and good dietary sources of calcium.; Discussed the value of a Mediterranean diet , and eating more fruits and vegetables Exercise counseling:Discussed the importance of daily physical activity; Discussed the importance of weight bearing exercise Safety:Counseled about protecting skin from the sun and lowering the risk of skin cancerVMG DiabetesReported bypatient.Duration:chronic Control:usually well controlled; unchanged since last visit; treated with diet only; Hemoglobin A1C has been less than 7; Hemoglobin A1C goal is less than 6.5; BP usually runs less than 120/80; BP goal is lessthan 130/80 Compliance:Patient understands medications are to reduce blood sugar and control diabetes; compliant with follow-up visits; compliant with diet; Compliant with exercise; Taking YORDY or ARB; Taking a statin medications Barriers to CareNo identified barriers to care Self Care:not monitoring home glucose Context:checking feet regularly; taking aspirin daily; not missing doses of medications; no side effects from medications Associated Symptoms:no dizziness; no headaches; no confusion; no blurred vision; no numbness of feet; no calluses on feet Ability to Manage Self CareOn how confident the patient feels in ability to self manage condition the patient selects 8 with 10 being very confident and 1 being very low confidenceVMG HyperlipidemiaReported bypatient.Duration:chronic Control:well controlled; improved since last visit; LDL has been <80, goal is <80; treated with diet; treated with medications; Patient understands medications are to lower cholesterol Compliance:compliant with medications; compliant with follow-up visits; compliant with diet; Barriers to CareNo identified barriers to care Context:Ischemic heart disease;Diabetes Associated Symptoms:no muscle pain; no fatigue; no chest discomfort; no dyspnea; no change in exercise capacity Ability to Manage Self CareOn how confident the patient feels in ability to self manage condition the patient selects 8 with 10 being very confident and 1 being very low confidenceVMG HypertensionReported bypatient.Duration:Age / year diagnosed (chronic) Context:No kidney disease; No congestive heart failure; No history of transient ischemic attacks; No peripheral vascular disease;Ischemic heart disease;Diabetes Control:BP Goal less than (130/80); Treated with diet and exercise; Treated with medications; Patient understands medications are to lower blood pressure Compliance:Compliant with medications; Compliant with diet; Compliant with exercise; Compliant with follow-up visits Barriers to CareNo identified barriers to care Self Care:not doing home bp monitoring Aggravating factors:counseled to increase activity; counseled to lose weight Associated Symptoms:No chest pain; No shortness of breath; No edema; No fatigue; No palpitations; No decline in exercise capacity Ability to Manage Self CareOn how confident the patient feels in ability to self manage condition the patient selects 8 with 10 being very confident and 1 being very low confidence Diane Reardon MD [address] [place] [address], [phone], [facility] 03/09/2023 05:13:18 4 text/html Patient presents for follow-up of their hypertension, DM2. and gout.Updates from last visit:, colonoscopy done, Dr Armstrong, getting nuclear [facility] blood pressures: occasionallyTaking medications daily as prescribed.Side Effects: NoneLow salt diet: {{yes* no}}Exercise: treadmill, 35 min brisk walkingCaffeine intake: once a dayAlcohol consumption: couple per dayDoesn't Smoke - quit age 21Daily stress level: Denies any new shortness of breath, cough, dizziness, chest pain, nausea, vomiting, leg swelling or weakness. An independent historian contributed to the patient's information for this visit: {{yes no*}}.Patient is {{able* not able}} to manage his medications Diane Reardon MD [address] [place] [address], [phone], [facility] 09/03/2023 20:08:37 4 text/html Patient presents for follow-up of their hypertension, DM2. and gout.Updates from last visit:, left knee pain is progressively worse, pain with walking and some swelling that start through out the day, taking 400 mg ibuprofen daily now. Less walking now due to painHome blood pressures: occasionallyTaking medications daily as prescribed.Side Effects: NoneLow salt diet: {{yes* no}}Exercise: treadmill, 35 min brisk walkingCaffeine intake: once a dayAlcohol consumption: couple per dayDoesn't Smoke - quit age 21Daily stress level: Denies any new shortness of breath, cough, dizziness, chest pain, nausea, vomiting, leg swelling or weakness. An independent historian contributed to the patient's information for this visit: {{yes no*}}.Patient is {{able* not able}} to manage his medications Diane Reardon MD [address] [place] [address], [phone], [facility] 03/07/2024 10:52:39
== END 2024-08-14 14:51 | disposition home or self-care (01) ==
PROVIDERS: PCP Family Medicine; Visit Provider Internal Medicine Cardiovascular Disease
DX: I25.10 Atherosclerotic heart disease of native coronary artery without angina pectoris (principal); I10 Essential (primary) hypertension
CPT/HCPCS: 93010; 99214; G2211

== ENCOUNTER → 2024-08-14 14:15 | Outpatient (BNVA) | payer BC, SELFPAY | PROVIDERS: PCP Family Medicine; Visit Provider Internal Medicine Cardiovascular Disease | DX: I25.10 Atherosclerotic heart disease of native coronary artery without angina pectoris (principal); I10 Essential (primary) hypertension | CPT/HCPCS: 93005; 99212 ==